=== PATIENT | female | born 1985 | race Caucasian/White ===

== ENCOUNTER 2017-09-07 13:01 | Emergency (ER) | payer SELFPAY ==
[2017-09-07] MEDS ORDERED: NA CHLORIDE 0.9% 1,000 ML ONE (14:21)
[2017-09-07] MEDS ORDERED: METOCLOPRAMIDE 10 MG/2mL INJ ONE (14:27)
[2017-09-07 14:56] LABS: ALT/SGPT 24 U/L (12-78); AST/SGOT 27 U/L (15-37); Albumin 3.2 g/dL (3.4-5.0); Alkaline Phosphatase 77 U/L (45-117); Amylase Level 47 U/L (25-115); BUN Blood Urea Nitrogen 13 mg/dL (7-18); Bicarbonate 28 mmol/L (21-32); Bilirubin Direct < 0.1 mg/dL (0-0.2); Bilirubin Total 0.2 mg/dL (0.2-1.0); Glucose Level 87 mg/dL (74-106); Lipase 306 U/L (73-393); Potassium 4.6 mmol/L (3.5-5.1); Protein, Total 6.7 g/dL (6.4-8.2); Sodium Level 141 mmol/L (136-145)
--- NOTE | 2017-09-07 15:25 | RAD REPORT ---
EXAM DESCRIPTION: CTAbdomen Pelvis W Contrast - 09/07/2017 3:17 pm CLINICAL HISTORY: Abdominal pain. Abdominal pain, IV ONLY COMPARISON: No comparisons TECHNIQUE: Biphasic CT imaging of the abdomen and pelvis was performed with 100 ml non-ionic IV cont rast. All CT scans are performed using dose optimization technique as appropriate and may include automated exposure control or mA/KV adjustment according to patient size. FINDINGS: The lung bases are clear. The liver, spleen, pancreas, adrenal glands and kidneys are within normal limits. No bowel obstruction, free air, free fluid or abscess. The appendix is normal. No evidence of signi ficant lymphadenopathy. No suspicious bony findings. 3.9 cm left adnexal cyst is present. Trace pelvic free fluid. IMPRESSION: No acute intra-abdominal or pelvic finding.
[2017-09-07 15:47] LABS: Urine Amorphous Sediment 3+ /HPF (NONE SEEN); Urine Bacteria <20 /HPF (<20); Urine Culture Reflex Order NOT NEEDED; Urine RBC <5 /HPF (NONE SEEN)
[2017-09-07 15:48] LABS: Urine Blood NEGATIVE (NEG); Urine Glucose NEGATIVE (NEG); Urine Protein NEGATIVE (NEG); Urine pH 8.5 (5.0-7.0)
[2017-09-07 16:13] LABS: Absolute Lymphocytes (CBC) 2.2 K/uL (0.7-4.9); Absolute Monocytes 0.7 K/uL (0.1-1.3); Absolute Neutrophil 4.4 K/uL (1.8-8.0); Basophils % 0.4 % (0-1.3); Eosinophils % 2.4 % (0-4.4); Hematocrit 32.8 % (36.0-45.0); Lymphocytes % 29.4 % (15.3-44.8); MCH 32.5 pg (27.0-35.0); MCV 92.7 fL (80-100); MPV 8.3 fL (7.6-11.3); Monocytes % 8.8 % (3.3-12.3); RBC Red Blood Cell Count 3.54 M/uL (3.86-4.86)
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
--- NOTE | 2017-09-07 16:26 | EDPHYS ---
Physician Documentation [facility] Name: Vanesa Mccallum Age: 32 yrs Sex: Female : 1985 Arrival Date: 09/07/2017 Time: 13:11 Bed 15 Private MD: ED Physician Wally Peace HPI: 09/07 13:33 This 32 yrs old Female presents to ER via Ambulatory with complaints of jmm Nausea/Vomiting, Fever. 13:33 The patient presents to the emergency department with nausea, vomiting, abdominal pain. jmm Onset: The symptoms/episode began/occurred gradually, 1 week(s) ago. Possible causes: unknown. The symptoms are aggravated by nothing. The symptoms are alleviated by nothing. Associated signs and symptoms: Pertinent negatives: diarrhea. This is a 32 year old female with a history of seizures that presents to the ED with abdominal pain and vomiting beginning 1 week ago. Patient states she is currently at [facility] for meth amphetamines. Patient states most recent ingestion was 30 hours pioor to arrival. Patient denies diarrhea. Patient also complains of fever and facial rash for the past 6 months. . 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 - Social history:: Smoking status: Patient uses tobacco products, Patient uses street drugs, Methamphetamine (Meth). - Ebola Screening: : Patient negative for fever greater than or equal to 101.5 degrees Fahrenheit, and additional compatible Ebola Virus Disease symptoms Patient denies exposure to infectious person Patient denies travel to an Ebola-affected area in the 21 days before illness onset. ROS: 13:33 Cardiovascular: Negative for chest pain, palpitations, and edema, Respiratory: Negative jmm for shortness of breath, cough, wheezing, and pleuritic chest pain. 13:33 Constitutional: Positive for body aches, fever. 13:33 Abdomen/GI: Positive for abdominal pain. 13:33 Skin: Positive for rash. 13:33 All other systems are negative. Exam: 13:33 Eyes: EOMI, no conjunctival erythema appreciated Chest/axilla: Normal chest wall [facility] appearance and motion. Cardiovascular: Regular rate and rhythm. No edema appreciated Respiratory: Normal respirations, no respiratory distress appreciated 13:33 Constitutional: The patient appears alert, awake, uncomfortable. 13:33 Head/face: mild erythematous rash noted to the bridge of the nose and left lateral periorbital region. 13:33 Abdomen/GI: Inspection: abdomen appears normal, Bowel sounds: normal, Palpation: soft, moderate abdominal tenderness, in the right upper quadrant and right lower quadrant. 13:33 Back: CVA tenderness, is absent. 13:33 Musculoskeletal/extremity: ROM: intact in all extremities. 13:33 Skin: Appearance: Color: normal in color. 13:33 Neuro: Orientation: is normal, Mentation: is normal, Memory: is normal. 13:33 Psych: Behavior/mood is pleasant, cooperative. Vital Signs: 13:33 BP 121 / 73; Pulse 99; Resp 18; Temp 98.7(O); Pulse Ox 100% on R/A; Weight 61.23 kg; Height 5 ft. 7 in. (170.18 cm); Pain 10/10; 14:30 BP 107 / 78; Pulse 78; Resp 18; Pulse Ox 100% on R/A; hj 15:50 BP 113 / 67; Pulse 76; Resp 18; Pulse Ox 100% on R/A; hj 16:59 BP 120 / 68; Pulse 75; Resp 18; Pulse Ox 100% on R/A; hj 13:33 Body Mass Index 21.14 (61.23 kg, 170.18 cm) MDM: 13:33 Patient medically screened. [facility] 16:23 Data reviewed: vital signs, nurses notes, lab test result(s). Counseling: I had a [facility] detailed discussion with the patient and/or guardian regarding: the historical points, exam findings, and any diagnostic results supporting the discharge/admit diagnosis, radiology results, the need for outpatient follow up, to return to the emergency department if symptoms worsen or persist or if there are any questions or concerns that arise at home. 09/07 13:59 Order name: Amylase, Serum; Complete Time: 15:26 [facility] 09/07 13:59 Order name: Basic Metabolic Panel; Complete Time: 15:26 [facility] 09/07 13:59 Order name: CBC with Diff; Complete Time: 16:16 [facility] 09/07 13:59 Order name: Creatinine for Radiology; Complete Time: 15:26 [facility] 09/07 13:59 Order name: Hepatic Function; Complete Time: 15:26 [facility] 09/07 13:59 Order name: Lipase; Complete Time: 15:26 [facility] 09/07 13:59 Order name: Urine Microscopic Only; Complete Time: 15:54 [facility] 09/07 14:02 Order name: CT Abd/Pelvis - W/Contrast; Complete Time: 15:26 [facility] 09/07 15:15 Order name: Urine Dipstick--Ancillary (enter results); Complete Time: 15:54 09/07 15:15 Order name: Urine --Ancillary (enter results); Complete Time: 15:54 09/07 15:54 Order name: US Abdomen Limited; Complete Time: 16:51 [facility] 09/07 13:59 Order name: IV Saline Lock; Complete Time: 14:29 [facility] 09/07 13:59 Order name: Labs collected and sent; Complete Time: 14:29 [facility] 09/07 13:59 Order name: Urine Dipstick-Ancillary (obtain specimen); Complete Time: 15:11 [facility] Administered Medications: 13:59 Drug: NS 0.9% 1000 ml Route: IV; Rate: 1 bolus; Site: right antecubital; 16:45 Follow up: IV Status: Completed infusion 14:28 Not Given (not available per pharmacy; MD aware): Compazine 10 mg IVP once; Put in bolus 14:28 Drug: Reglan 10 mg Route: IVP; Site: right antecubital; hj 14:28 Follow up: Response: No adverse reaction; Nausea is decreased Disposition: 09/07/17 16:26 Discharged to Home. Impression: Vomiting, Other abdominal pain. - Condition is Stable. - Discharge Instructions: Abdominal Pain, Adult, Vomiting, Adult. - Prescriptions for promethazine 25 mg Oral Tablet - take 1 tablet by ORAL route every 6 hours As needed; 20 tablet. - Medication Reconciliation Form, Thank You Letter, Antibiotic Education, Prescription Opioid Use form. - Follow up: Private Physician; When: 2 - 3 days; Reason: Continuance of care. Addendum: 09/10/2017 10:22 Co-signature as Attending Physician, Wally Peace MD I agree with the assessment and c strong plan of care. Signatures: Dispatcher [employer] EDWally Lowe MD MD cha Mickail, Joel, PA PA Tripp Valenzuela, BRANDI RN hj Corrections: (The following items were deleted from the chart) 09/07 17:00 16:26 09/07/2017 16:26 Discharged to Home. Impression: Vomiting; Other abdominal pain. hj Condition is Stable. Forms are Medication Reconciliation Form, Thank You Letter, Antibiotic Education, Prescription Opioid Use. Follow up: Private Physician; When: 2 - 3 days; Reason: Continuance of care. giovany
--- NOTE | 2017-09-07 16:38 | RAD REPORT ---
EXAM DESCRIPTION: US - Abdomen Exam Limited - 09/07/2017 4:27 pm CLINICAL HISTORY: Abdominal pain COMPARISON: CT study September 07 FINDINGS: Gallbladder is contracted. Patient was not fasting for the examination. No gallstones or m easurable quantity of sludge identified within the contracted gallbladder. The contracted state accen tuates wall thickness. Pathologic wall thickening is not suspected. No pericholecystic fluid. Common bile duct is normal with no common duct stone identified. IMPRESSION: Contracted gallbladder showing no suspicious finding. Patient was not fasting for the ex amination. No biliary tree abnormality.
== END 2017-09-07 17:00 | disposition home or self-care (01) ==
LOC: ER 13:01
DX: R10.9 Unspecified abdominal pain (principal); R11.10 Vomiting, unspecified; Z88.8 Allergy status to other drugs, medicaments and biological substances; F17.200 Nicotine dependence, unspecified, uncomplicated; F15.11 Other stimulant abuse, in remission
CPT/HCPCS: 36415; 74177; 76705; 80048; 80076; 81003; 81015; 81025; 82150; 83690; 85025; 96361; 96374; 99284; J2765; J7030; Q9967

== ENCOUNTER 2017-09-17 23:27 | Emergency (ER) | payer SELFPAY ==
--- OUTSIDE RECORDS SUMMARY | 2017-09-17 23:29 | XMS REPORT | Clinical Summary ---
:1985 Author Organization [facility] Address [address] [place] [id number] Care Team Providers Name Role Phone Gareth Rodarte MD Primary Care Provider Allergies Active Allergy Reactions Severity Noted Date Comments Zolpidem 01/10/2016 Venlafaxine 01/10/2016 Desvenlafaxine Succinate 01/10/2016 Carisoprodol 01/10/2016 Current Medications Prescription Sig. Disp. Refills Start Date End Date Status carBAMazepine XR (TEGretol Take 200 mg by Active XR) 200 MG 12 hr tablet mouth 2 (two) times a day. amitriptyline (ELAVIL) 50 Take 50 mg by Active MG tablet mouth nightly. lisdexamfetamine (VYVANSE) Take 70 mg by Active 40 MG capsule mouth every morning. keTOROlac (TORadol) 10 mg Take 10 mg by Active tablet mouth every 6 (six) hours as needed for moderate pain. ALPRAZolam (XANAX) 1 MG Take 1 mg by mouth Active tablet nightly as needed for anxiety. BUTALB/ACETAMINOPHEN/CAFFE Take by mouth. Active INE (FIORICET ORAL) ONDANSETRON (ZOFRAN ODT Take by mouth. Active ORAL) METOCLOPRAMIDE HCL (REGLAN Take by mouth. Active ORAL) PROMETHAZINE HCL Take by mouth. Active (PROMETHAZINE ORAL) LORAZepam (ATIVAN) 1 MG 2 mg. 01/11/2016 Active tablet metaxalone (SKELAXIN) 800 02/23/2016 Active MG tablet FLUoxetine (PROzac) 20 MG 01/13/2016 Active capsule Active Problems No known active problems Encounters Date Type Specialty Care Team Description 10/04/2016 Telephone Obstetrics and Gynecology Yadira Hernandez RN after 09/16/2016 Social History Tobacco Use Types Packs/Day Years Used Date Current Every Day Smoker 0.25 Smokeless Tobacco: Never Used Alcohol Use Drinks/Week oz/Week Comments No Sex Assigned at Date Recorded Not on file Last Filed Vital Signs Not on file Plan of Treatment Health Maintenance Due Date Last Done Comments CERVICAL CANCER SCREENING 2006 INFLUENZA VACCINE 09/12/2017 Results Not on fileafter 09/16/2016 Insurance Payer Benefit Plan / Group Subscriber ID Type Phone Address [employer] HMO,POS,EPO, MC/EC xxxxxxxxxx HMO [phone] [place] [id number]
--- OUTSIDE RECORDS SUMMARY | 2017-09-17 23:29 | XMS REPORT | Continuity of Care Document ---
:1985 Author Organization Interface Problems Problem Status Onset Classification Date Comments Source Date Reported Cutaneous 05/28/2017 [facility] abscess of 8 neck Abscess 05/28/2017 [facility] 8 Cellulitis 05/28/2017 [facility] 8 Discharge 02/22/2017 [facility] Diagnosis: 8 Abscess Discharge 02/22/2017 [facility] Diagnosis: 8 Cellulitis ABCESS Active [facility] 8 Cellulitis of 05/28/2017 [facility] neck Medications Medication Details Route Status Patient Ordering Order Source Instructions Provider Date Cephalexin 500 MG 500 mg=1 cap, No Longer Oral Capsule PO, QID, X 7 Active 2017 [facility] [Keflex] day, # 28 cap, 0 Refill(s) Sulfamethoxazole 1 tab, PO, BID, Active 800 MG / # 20 tab, 0 2017 [facility] Trimethoprim 160 Refill(s) MG Oral Tablet [Bactrim] Acetaminophen 300 1 - 2 tablets, No Longer MG / Codeine PO, Daily, PRN Active 2017 [facility] Phosphate 30 MG Pain, X 30 day, Oral Tablet # 60 tab, 0 [Tylenol with Refill(s) Codeine #3] Ketorolac 30 mg, 1 mL, Inactive Route: IM, Drug [address] [place] [address] form: INJ, ONCE, Dosing Weight 65.045, kg, Priority: STAT, Start date: 02/19/17 11:55:00 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 Give IM administration slowly and deeply into the muscle. 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 Allergies, Adverse Reactions, Alerts Substance Category Reaction Severity Reaction Status Date Comments Source type Reported NKDA Assertion Drug Active allergy [facility] Immunizations Immunization Date Given Site Status Last Updated Comments Source Results Order Results Value Reference Date Interpretation Comments Source Name Range Vital Signs Vital Sign Value Date Comments Source Respitory Rate 16 02/19/2017 [facility] Systolic (mm Hg) 138 02/19/2017 [facility] Diastolic (mm Hg) 64 02/19/2017 [facility] Heart Rate 98 02/19/2017 [facility] Temperature Oral (F) 98.0 F 02/19/2017 [facility] Height 170.18 cm 02/19/2017 [facility] Weight 65.045 02/19/2017 [facility] BMI Calculated 22.46 02/19/2017 [facility] Heart Rate 117 02/19/2017 [facility] Systolic (mm Hg) 140 02/19/2017 [facility] Diastolic (mm Hg) 106 02/19/2017 [facility] Respitory Rate 16 02/19/2017 [facility] Temperature Oral (F) 97.8 F 02/19/2017 [facility] Encounters Location Location Encounter Encounter Reason Attending ADM DC Status Source Details Type Number For Provider Date Date Visit [facility] Emergency [id number] Sandeep 02/19 02/19 Jorge Jones /2017 [facility] Procedures Procedure Code Date Perfomer Comments Source
--- OUTSIDE RECORDS SUMMARY | 2017-09-17 23:29 | XMS REPORT | Clinical Summary ---
:1985 Author Organization [facility] Address [facility] [place] [address] Phone Care Team Providers Name Role Phone Unavailable Primary Care Provider Unavailable Allergies Active Allergy Reactions Severity Noted Date Comments Zolpidem Other (See Comments) 06/27/2013 Hallucinations Divalproex 11/14/2015 Gabapentin Other (See Comments) 06/27/2013 hallucinations Levetiracetam 11/14/2015 Lamotrigine Other (See Comments) 06/27/2013 Severe mood shift Promethazine-Dm 11/14/2015 Tramadol Other (See Comments) 06/27/2013 Extreme anxiety and heart racing Current Medications Prescription Sig. Disp. Refills Start Date End Date Status FLUoxetine (PROZAC) 40 Take 80 mg by Active MG capsule mouth daily. carBAMazepine Take 200 mg by Active (TEGRETOL) 200 mg mouth 3 tablet (three) times daily. amitriptyline (ELAVIL) Take 50 mg by Active 50 MG tablet mouth nightly. lisdexamfetamine Take 50 mg by Active (VYVANSE) 50 MG capsule mouth every morning. ondansetron (ZOFRAN) 8 Take by mouth Active MG tablet every 8 (eight) hours as needed for Nausea. ketorolac (TORADOL) 10 Take 10 mg by Active mg tablet mouth every 6 (six) hours as needed for Pain. acetaminophen-codeine Take 1 tablet Active (TYLENOL #3) 300-30 mg by mouth every per tablet 4 (four) hours as needed for Pain. metoclopramide HCl Take 10 mg by Active (REGLAN) 10 MG tablet mouth 4 (four) times daily as needed for Nausea. butalbital-acetaminophe Take 1-2 20 tablet 0 12/05/2015 12/04/2016 n-caffeine (FIORICET) tablets by 50-325-40 mg per tablet mouth every 6 (six) hours as needed for Headaches. Active Problems Problem Noted Date Seizure disorder in ([facility]) 06/27/2013 Social History Tobacco Use Types Packs/Day Years Used Date Current Every Day Smoker Smokeless Tobacco: Never Used Alcohol Use Drinks/Week oz/Week Comments No Sex Assigned at Date Recorded Not on file Last Filed Vital Signs Not on file Plan of Treatment Health Maintenance Due Date Last Done Comments INFLUENZA VACCINE 11/12/2017 Results Not on fileafter 09/16/2016
--- OUTSIDE RECORDS SUMMARY | 2017-09-17 23:29 | XMS REPORT | Summary of Care ---
:1985 Author Organization [facility] Address [address] [place], [place] [address]- Encounter HQ Rob(FIN) [id number] Date(s): 02/19/17 - 02/19/17 [facility] [address] [place] [address]- Encounter Diagnosis Abscess (Discharge Diagnosis) - 02/19/17 Cellulitis (Discharge Diagnosis) - 02/19/17 Cutaneous abscess of neck (Final) - 02/25/17 Cellulitis of neck (Final) - Discharge Disposition: Home or Self Care Attending Physician: Sandeep Neri MD Vital Signs Most recent to oldest [Reference Range]: 1 2 Height 170.18 cm (02/19/17 10:29 AM) Temperature Oral [96.4-99.1 DegF] 98.0 DegF 97.8 DegF (02/19/17 1:00 PM) (02/19/17 10:29 AM) Blood Pressure [90-140/60-90 mmHg] 138/64 mmHg 140/106 mmHg (02/19/17 1:00 PM) (02/19/17 10:29 AM) Respiratory Rate [14-20 BRMIN] 16 BRMIN 16 BRMIN (02/19/17 1:00 PM) (02/19/17 10:29 AM) Peripheral Pulse Rate [60-100 bpm] 98 bpm 117 bpm (02/19/17 1:00 PM) *HI* (02/19/17 10:29 AM) Weight 65.045 kg (02/19/17 10:29 AM) Body Mass Index 22.46 m2 (02/19/17 10:29 AM) Problem List No data available for this section Allergies, Adverse Reactions, Alerts Substance Reaction Severity Status NKDA Active Medications acetaminophen-hydrocodone 325 mg-5 mg oral tablet 1 tab, Route: PO, Dosing Weight 65.045, kg, ONCE, STAT, Start date: 02/19/17 11: 00:00 IMPORT/EXPORT ANALYST, Stop date: 02/19/17 11:00:00 IMPORT/EXPORT ANALYST Start Date: 02/19/17 Stop Date: 02/19/17 Status: CompletedBactrim DS 800 mg- 160 mg oral tablet 1 tab, PO, BID, # 20 tab, 0 Refill(s) Start Date: 02/19/17 Stop Date: 03/01/17 Status: OrderedKeflex 500 mg oral capsule 500 mg=1 cap, PO, QID, X 7 day, # 28 cap, 0 Refill(s) Start Date: 02/19/17 Stop Date: 02/26/17 Status: CompletedketOROLAC 30 mg, 1 mL, Route: IM, Drug form: INJ, ONCE, Dosing Weight 65.045, kg, Priority : STAT, Start date: 02/19/17 11:55:00 IMPORT/EXPORT ANALYST, Stop date: 02/19/17 11:55:00 IMPORT/EXPORT ANALYST Notes: (Same as:Toradol) IV bolus must be given >15 seconds. Give IM administration slowly and deeply into the muscle.Not for use > 4 days MEDICATION WASTE Product Size: 30 mgProduct Wasted: ___ mg Start Date: 02/19/17 Stop Date: 02/19/17 Status: Completedlidocaine 2% 20 mL, Route: SUB-Q, Drug Form: INJ, Dosing Weight 65.045, kg, ONCE, STAT, Start date: 02/19/17 11:10:00 IMPORT/EXPORT ANALYST, Stop date: 02/19/17 11:10:00 IMPORT/EXPORT ANALYST Notes: (Same as: Xylocaine) Start Date: 02/19/17 Stop Date: 02/19/17 Status: CompletedTylenol with Codeine #3 oral tablet 1 - 2 tablets, PO, Daily, PRN Pain, X 30 day, # 60 tab, 0 Refill(s) Start Date: 02/19/17 Stop Date: 03/21/17 Status: Completed Results No data available for this section Immunizations No data available for this section Procedures No data available for this section Social History Social History Type Response Smoking Status Unknown if ever smoked; Ready to change: No; Concerns about tobacco use in household: No; Exposure to Tobacco Smoke None; Cigarette Smoking Last 365 Days No; Reg Smoking Cessation Counseling No entered on: 02/19/17 Assessment and Plan No data available for this section
--- OUTSIDE RECORDS SUMMARY | 2017-09-17 23:29 | XMS REPORT | Summary of Care ---
:1985 Author Organization [facility] Address [address] [place], [place] [address]- Encounter HQ Rob(TONE) [id number] Date(s): 02/19/17 - 02/19/17 [facility] [address] [place] [address]- Discharge Diagnosis: Abscess Discharge Diagnosis: Cellulitis Discharge Disposition: Home or Self Care Attending [...] ONCE, STAT, Start date: 02/19/17 11: 00:00 EDITING INTERN, Stop date: 02/19/17 11:00:00 EDITING INTERN Start Date: 02/19/17 Stop Date: 02/19/17 Status: CompletedBactrim DS 800 mg- 160 mg oral tablet 1 tab, PO, BID, # 20 tab, 0 Refill(s) Start Date: 02/19/17 Stop Date: 03/01/17 Status: OrderedKeflex 500 mg oral capsule 500 mg=1 cap, PO, QID, X 7 day, # 28 cap, 0 Refill(s) Start Date: 02/19/17 Stop Date: 02/26/17 Status: OrderedketOROLAC 30 mg, 1 mL, Route: IM, Drug form: INJ, ONCE, Dosing Weight 65.045, kg, Priority : STAT, Start date: 02/19/17 11:55:00 EDITING INTERN, Stop date: 02/19/17 11:55:00 EDITING INTERN Notes: (Same as:Toradol) IV bolus must be given >15 seconds. Give IM administration slowly and deeply into the muscle.Not for use > 4 days MEDICATION WASTE Product Size: 30 mgProduct Wasted: ___ mg Start Date: 02/19/17 Stop Date: 02/19/17 Status: Completedlidocaine 2% 20 mL, Route: SUB-Q, Drug Form: INJ, Dosing Weight 65.045, kg, ONCE, STAT, Start date: 02/19/17 11:10:00 EDITING INTERN, Stop date: 02/19/17 11:10:00 EDITING INTERN Notes: (Same as: Xylocaine) Start Date: 02/19/17 Stop Date: 02/19/17 Status: CompletedTylenol with Codeine #3 oral tablet 1 - 2 tablets, PO, Daily, PRN Pain, X 30 day, # 60 tab, 0 Refill(s) Start Date: 02/19/17 Stop Date: 03/21/17 Status: Ordered Results No data available for this section Immunizations No data available for this section Procedures No data available for this section Social History Social History Type Response Smoking Status Unknown if ever smoked; Ready to change: No; Concerns about tobacco use in household: No; Exposure to Tobacco Smoke None; Cigarette Smoking Last 365 Days No; Reg Smoking Cessation Counseling No Assessment and Plan No data available for this section
[2017-09-18] MEDS ORDERED: ONDANSETRON 4 MG (ODT) TAB ONE (00:03)
[2017-09-18] MEDS ORDERED: SUCRALFATE 1 GM TABLET ONE (00:03)
--- NOTE | 2017-09-18 00:53 | ER ---
Nurse's Notes [facility] Name: Vanesa Mccallum Age: 32 yrs Sex: Female : 1985 Arrival Date: 09/17/2017 Time: 23:35 Bed 30 Private MD: Diagnosis: Chest pain, unspecified Presentation: 09/17 23:36 Presenting complaint: EMS states: patient was laying in bed approximately 25 minutes kr2 ago, felt a pop in her chest, started having pain that radiated to left shoulder. She is currently a resident at the [facility] for treatment of meth addiction. Transition of care: patient was not received from another setting of care. Onset of symptoms was September 17, 2017 at 23:00. Risk Assessment: Do you want to hurt yourself or someone else? Patient reports no desire to harm self or others. Initial Sepsis Screen: Does the patient meet any 2 criteria? No. Patient's initial sepsis screen is negative. Does the patient have a suspected source of infection? No. Patient's initial sepsis screen is negative. Care prior to arrival: None. 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 - Social history:: Smoking status: Patient uses tobacco products, smokes one-half pack cigarettes per day. - Ebola Screening: : No symptoms or risks identified at this time. Screenin/07 00:10 Abuse screen: Denies threats or abuse. Denies injuries from another. Nutritional kr2 screening: No deficits noted. Tuberculosis screening: No symptoms or risk factors identified. Fall Risk None identified. Assessment: 00:09 General: Appears in no apparent distress. uncomfortable, well groomed, well developed, kr2 well nourished, Behavior is calm, cooperative, appropriate for age. Pain: Complains of pain in anterior aspect of left upper chest Pain radiates to anterior aspect of left shoulder Pain currently is 7 out of 10 on a pain scale. Quality of pain is described as sharp, stabbing, Pain began suddenly, Alleviated by nothing. Neuro: Level of Consciousness is awake, alert, obeys commands. Cardiovascular: Heart tones S1 S2 Capillary refill < 3 seconds in bilateral fingers Patient's skin is warm and dry. Rhythm is sinus rhythm. Respiratory: Airway is patent Respiratory effort is even, unlabored, Respiratory pattern is regular, symmetrical, Parent/caregiver reports the patient having cough that is non-productive. GI: Abdomen is flat, non-distended. : Denies burning with urination. EENT: Oral mucosa is moist. Derm: Skin is intact, is healthy with good turgor, Skin is dry, Skin is pale, pink, Skin temperature is warm. Musculoskeletal: Circulation, motion, and sensation intact. 00:35 Reassessment: Patient appears in no apparent distress at this time. Patient and/or kr2 family updated on plan of care and expected duration. Pain level reassessed. Patient is alert, oriented x 3, equal unlabored respirations, skin warm/dry/pink. 01:13 Reassessment: AWAITING TRANSPORT. rv Vital Signs: 09/17 23:38 BP 130 / 89; Pulse 84; Resp 18; Temp 98.9; Pulse Ox 98% on R/A; Weight 61.23 kg; Height kr2 5 ft. 7 in. (170.18 cm); Pain 7/10; 09/18 00:35 BP 124 / 87; Pulse 74; Resp 12; Pulse Ox 98% ; kr2 08 23:38 Body Mass Index 21.14 (61.23 kg, 170.18 cm) kr2 ED Course: 09/17 23:35 Patient arrived in ED. kr2 23:38 [facility] snw 23:38 Wally Peace MD is Attending Physician. snw 23:38 Triage completed. kr2 23:45 Arm band placed on. kr2 23:45 Patient has correct armband on for positive identification. Bed in low position. Call kr2 light in reach. Side rails up X 1. monitor and storage bin tender on. Pulse ox on. NIBP on. 23:53 Yudith Sheets, RN is Primary Nurse. kr2 09/18 00:00 EKG done, by ED staff, reviewed by Shena ROSALES. kr2 00:04 X-ray completed. Portable x-ray completed in exam room. Patient tolerated procedure kw well. 00:12 Patient maintains SpO2 saturation greater than 95% on room air. kr2 00:23 Chest Single View XRAY In Process Unspecified. EDMS 01:06 No provider procedures requiring assistance completed. Patient did not have IV access kr2 during this emergency room visit. Administered Medications: 00:08 Drug: CarafATE 1 grams Route: PO; kr2 00:57 Follow up: Response: No adverse reaction; Pain is decreased kr2 00:08 Drug: Zofran 4 mg Route: PO; kr2 00:57 Follow up: Response: No adverse reaction kr2 00:57 Drug: ProTONIX 40 mg Route: PO; kr2 00:57 Follow up: Response: Medication administered at discharge. kr2 Outcome: 00:52 Discharge ordered by . lonnie 01:07 Discharged to Rehab Facility kr2 01:07 Condition: good 01:07 Discharge instructions given to patient, Instructed on discharge instructions, follow up and referral plans. medication usage, Demonstrated understanding of instructions, follow-up care, medications, Prescriptions given X 1. 01:32 Patient left the ED. rv Signatures: Dispatcher [employer] EDWV Shena Calero FNP-C FNP-Michelle Lambert Karey, RN RN kr2 Bill lAexandra RN RN rv Corrections: (The following items were deleted from the chart) 00:12 00:11 Arm band placed on kr2 kr2
--- NOTE | 2017-09-18 00:53 | EDPHYS ---
Physician Documentation [facility] Name: Vanesa Mccallum Age: 32 yrs Sex: Female : 1985 Arrival Date: 09/17/2017 Time: 23:35 Bed 30 Private MD: ED Physician Wally Peace HPI: 09/17 23:59 This 32 yrs old Female presents to ER via EMS with complaints of Chest Pain > snw 30 y/o. 23:59 The patient or guardian reports chest pain that is located primarily in the left chest snw wall. The pain does not radiate. Associated signs and symptoms: Pertinent positives: "out of it". The chest pain is described as sharp. Duration: The patient or guardian reports a single episode. Severity of pain: At its worst the pain was moderate. EMS care prior to arrival includes: IV fluids. The patient has experienced similar episodes in the past. The patient has been recently seen by a physician: The patient has been recently seen at the [facility] Emergency Department, a couple of weeks ago, nausea and vomiting. 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 - Social history:: Smoking status: Patient uses tobacco products, smokes one-half pack cigarettes per day. - Ebola Screening: : No symptoms or risks identified at this time. ROS: 23:58 Eyes: Negative for injury, pain, redness, and discharge, ENT: Negative for injury, snw pain, and discharge, Neck: Negative for injury, pain, and swelling. 23:58 Respiratory: Negative for shortness of breath, cough, wheezing, and pleuritic chest pain. 23:58 Back: Negative for injury and pain, : Negative for injury, bleeding, discharge, and swelling, MS/Extremity: Negative for injury and deformity, Skin: Negative for injury, rash, and discoloration. 23:58 Constitutional: Positive for body aches, malaise. 23:58 Cardiovascular: Positive for chest pain, popping sensation. 23:58 Abdomen/GI: Positive for nausea. 23:58 Neuro: Positive for "history of epileptic and nonepileptic seizures". Exam: 23:56 Head/Face: Normocephalic, atraumatic. Eyes: Pupils equal round and reactive to light, snw extra-ocular motions intact. Lids and lashes normal. Conjunctiva and sclera are non-icteric and not injected. Cornea within normal limits. Periorbital areas with no swelling, redness, or edema. ENT: Nares patent. No nasal discharge, no septal abnormalities noted. Tympanic membranes are normal and external auditory canals are clear. Oropharynx with no redness, swelling, or masses, exudates, or evidence of obstruction, uvula midline. Mucous membranes moist. Neck: Trachea midline, no thyromegaly or masses palpated, and no cervical lymphadenopathy. Supple, full range of motion without nuchal rigidity, or vertebral point tenderness. No Meningismus. Cardiovascular: Regular rate and rhythm with a normal S1 and S2. No gallops, murmurs, or rubs. Normal PMI, no JVD. No pulse deficits. Respiratory: Lungs have equal breath sounds bilaterally, clear to auscultation and percussion. No rales, rhonchi or wheezes noted. No increased work of breathing, no retractions or nasal flaring. Abdomen/GI: Soft, non-tender, with normal bowel sounds. No distension or tympany. No guarding or rebound. No evidence of tenderness throughout. Back: No spinal tenderness. No costovertebral tenderness. Full range of motion. Skin: Warm, dry with normal turgor. Normal color with no rashes, no lesions, and no evidence of cellulitis. MS/ Extremity: Pulses equal, no cyanosis. Neurovascular intact. Full, normal range of motion. Neuro: Awake and alert, GCS 15, oriented to person, place, time, and situation. Cranial nerves II-XII grossly intact. Motor strength 5/5 in all extremities. Sensory grossly intact. Cerebellar exam normal. Normal gait. 23:56 Constitutional: The patient appears anxious, answers questions in a whisper 23:56 Psych: Behavior/mood is aggressive, dramatic. Affect is animated, Patient has no thoughts/intents to harm self or others. Judgement / Insight is normal. Vital Signs: 23:38 BP 130 / 89; Pulse 84; Resp 18; Temp 98.9; Pulse Ox 98% on R/A; Weight 61.23 kg; Height kr2 5 ft. 7 in. (170.18 cm); Pain 7/10; 09/18 00:35 BP 124 / 87; Pulse 74; Resp 12; Pulse Ox 98% ; kr2 09/17 23:38 Body Mass Index 21.14 (61.23 kg, 170.18 cm) kr2 MDM: 09/17 23:38 Patient medically screened. snw 09/18 00:24 Data reviewed: vital signs, nurses notes. Data interpreted: Pulse oximetry: on room air snw is 98 %. Interpretation: normal. Counseling: I had a detailed discussion with the patient and/or guardian regarding: the historical points, exam findings, and any diagnostic results supporting the discharge/admit diagnosis, the presence of at least one elevated blood pressure reading (>120/80) during this emergency department visit, the need for outpatient follow up, for definitive care. 09/17 23:58 Order name: ABG; Complete Time: 01:05 snw 09/17 23:39 Order name: Chest Single View XRAY snw 09/17 23:39 Order name: EKG; Complete Time: 23:40 snw 09/17 23:39 Order name: EKG - Nurse/Tech; Complete Time: 00:08 snw Administered Medications: 00:08 Drug: CarafATE 1 grams Route: PO; kr2 00:57 Follow up: Response: No adverse reaction; Pain is decreased kr2 00:08 Drug: Zofran 4 mg Route: PO; kr2 00:57 Follow up: Response: No adverse reaction kr2 00:57 Drug: ProTONIX 40 mg Route: PO; kr2 00:57 Follow up: Response: Medication administered at discharge. kr2 Disposition: 14:03 Co-signature as Attending Physician, Wally Peace MD I agree with the assessment and audrey plan of care. Disposition: 09/18/17 00:52 Discharged to Home. Impression: Chest pain, unspecified. - Condition is Stable. - Discharge Instructions: Nonspecific Chest Pain, Hypertension. - Prescriptions for Protonix 40 mg Oral Tablet - take 1 tablet by ORAL route once daily; 30 tablet. - Medication Reconciliation Form, Thank You Letter, Antibiotic Education, Prescription Opioid Use form. - Follow up: Private Physician; When: 2 - 3 days; Reason: Recheck today's complaints, Continuance of care, Re-evaluation by your physician. Follow up: Emergency Department; When: As needed; Reason: Worsening of condition. Signatures: Dispatcher [employer] EDMS Wally Peace, Shena Rashid MD, cha, BREWERY PUMPER-C BREWERY PUMPER-Csnw Yudith Sheets, RN RN kr2 Bill Alexandra, RN RN rv Corrections: (The following items were deleted from the chart) 01:32 00:52 09/18/2017 00:52 Discharged to Home. Impression: Chest pain, unspecified. rv Condition is Stable. Forms are Medication Reconciliation Form, Thank You Letter, Antibiotic Education, Prescription Opioid Use. Follow up: Private Physician; When: 2 - 3 days; Reason: Recheck today's complaints, Continuance of care, Re-evaluation by your physician. Follow up: Emergency Department; When: As needed; Reason: Worsening of condition. snw
[2017-09-18] MEDS ORDERED: PANTOPRAZOLE 40MG TABLET PO ONE (01:00)
[2017-09-18 01:04] LABS: Arterial Blood Carboxyhemoglob 1.3 % (0-1.5); Blood Gas Oxyhemoglobin 10.5 % (94-97)
--- NOTE | 2017-09-18 06:51 | EKG ---
Test Date: 2017-09-18 Test Time: 00:01:56 Vp Lab: [facility] MEASUREMENT RESULTS: Intervals: Rate: 67 NJ: 158 QRSD: 76 QT: 412 QTc: 435 [place]: P: 29 NJ: 158 QRS: 81 T: 70 INTERPRETIVE STATEMENTS: Normal sinus rhythm Normal ECG No previous ECG available for comparison Electronically Signed On 09-18-17 06:50:26 CDT by Abran Rainey
--- NOTE | 2017-09-18 08:28 | RAD REPORT ---
EXAM DESCRIPTION: RAD - Chest Single View - 09/18/2017 12:23 am CLINICAL HISTORY: CHEST PAIN Chest pain. COMPARISON: No comparisons FINDINGS: Portable technique limits examination quality. The lungs are grossly clear. The heart is normal in size. No displaced fractures. IMPRESSION: No acute intrathoracic process suspected.
== END 2017-09-18 01:32 | disposition home or self-care (01) ==
LOC: ER 23:27
DX: R07.9 Chest pain, unspecified (principal); G40.909 Epilepsy, unspecified, not intractable, without status epilepticus; F17.210 Nicotine dependence, cigarettes, uncomplicated; Z88.8 Allergy status to other drugs, medicaments and biological substances
CPT/HCPCS: 71045; 82805; 93005; 99285